=== PATIENT | male | born 1965 | race Hispanic/Latino ===

== ENCOUNTER 2024-10-14 22:04 | Emergency (ER) | payer BC, SELFPAY | END 2024-10-15 00:15 | disposition home or self-care (01) | LOC: ERS 22:04 | DX: K62.5 Hemorrhage of anus and rectum (principal); K64.9 Unspecified hemorrhoids; I10 Essential (primary) hypertension; E78.00 Pure hypercholesterolemia, unspecified | CPT/HCPCS: 99283 ==